=== PATIENT | female | born 1955 | race Caucasian/White ===

== ENCOUNTER 2018-09-19 23:12 | Emergency (ER) | payer OTHER ==
[~2018-09-19] VITALS: Ht 152.4 cm; Wt 58.1 kg
[2018-09-20] MEDS ORDERED: NORFLEX100 MG PO (01:10)
[2018-09-20] MEDS ORDERED: NORCO 5-325 TA1 EACH PO (01:10)
[2018-09-20] MEDS ORDERED: SENNA-DOCUSATE1 EAC1 PO (01:10)
[2018-09-20] MEDS ORDERED: IBUPROFEN 600600 M1 PO (01:10)
[2018-09-20 02:10] VITALS: BP 140/76
== END 2018-09-20 02:30 | disposition home or self-care (01) ==
LOC: ER 23:12
DX: S16.1XXA Strain of muscle, fascia and tendon at neck level, initial encounter (principal); S29.012A Strain of muscle and tendon of back wall of thorax, initial encounter; V89.2XXA Person injured in unspecified motor-vehicle accident, traffic, initial encounter; Y93.89 Activity, other specified; Y92.89 Other specified places as the place of occurrence of the external cause; Y99.8 Other external cause status